=== PATIENT | female | born 1940 | race Caucasian/White ===

== ENCOUNTER → 2019-01-26 | Outpatient (CLI) | payer MEDICARE, BC ==
--- NOTE | 2019-01-26 14:34 | XR ---
EXAM TYPE: LUMBAR SPINE X RAY SERIES COMPARISON: NONE HISTORY: Pain TECHNIQUE: 4 views are submitted. FINDINGS: Scoliosis with multilevel severe degenerative disc disease. Findings suggest previous surgery. Grade 1 anterolisthesis L3 on L4 and L4 on L5. Severe degenerative disc disease at all levels. Diffuse oste openia. Surgical clips right upper quadrant. IMPRESSION: 1. Postsurgical changes with severe multilevel degenerative disc disease and multilevel spondylolisth esis.
--- NOTE | 2019-01-26 14:36 | XR ---
EXAMINATION TYPE: XR pelvis AP view DATE OF EXAM: 01/26/2019 COMPARISON: NONE HISTORY: Pain A postsurgical change lower lumbar spine with chronic appearing deformities of the iliac crests likel y postsurgical. Arthropathy of the hips with diffuse osteopenia. Calcifications in the pelvis are lik maryam vascular. There is a deformity of the right superior pubic ramus.. Visualized bowel gas pattern is nonspecific. IMPRESSION: 1. Slight deformity of the right superior pubic ramus may be positional. Correlate with point tendern ess. If the patient is point tender would recommend CT scan..
== END | disposition home or self-care (01) ==
LOC: RADXRMAIN 13:54
PROVIDERS: ATTEND Internal Medicine
DX: M51.36 Other intervertebral disc degeneration, lumbar region (principal); M43.16 Spondylolisthesis, lumbar region
CPT/HCPCS: 72110; 72170

== ENCOUNTER → 2019-02-19 | Outpatient (CLI) | payer MEDICARE, BC ==
--- NOTE | 2019-02-19 15:43 | MR ---
EXAMINATION TYPE: MR lumbar spine wo/w con DATE OF EXAM: 02/19/2019 COMPARISON: 2009 and 2003. HISTORY: Low Back Pain TECHNIQUE: Multiplanar, multisequence images of the lumbar spine were acquired utilizing 7.5 mL intravenous Gada vist gadolinium contrast. There is 1 cm anterior subluxation of elbow 3 in relation to L4 and also L4 in relation L5. There is narrowing of disc spaces throughout the lumbar spine. There is more severe narrowing from L1 to L4. T here is some sclerosis of the endplates from L1 to L4. There is no compression fracture. There is spi nal stenosis at L2-3 L3-4 due to extensive facet arthropathy. There is lateral recess stenosis especi ally at L2-3 due to large osteophyte formation on the right side. There is no lumbar paraspinal mass. Contrast images show no pathologic enhancement. There is moderately severe L3-4 bony spinal stenosis . IMPRESSION: Degenerative spondylolisthesis as above at 2 levels. Severe L2-3 spinal stenosis. Moderate lateral re cess stenosis at L3-4 due to extensive facet arthropathy. Advanced multilevel spondylotic changes. Mu ltilevel posterior surgery. There is progression of disease compared to old MR scan of 02/08/2004. Ther e is progression of the spinal stenosis and lateral recess stenosis compared to old MR scan of 12/07/19 10. There is increased subluxation deformity at L3-4 compared to 2009.
== END | disposition home or self-care (01) ==
LOC: RADMRIMAIN 09:08
PROVIDERS: ATTEND Internal Medicine
DX: M48.061 Spinal stenosis, lumbar region without neurogenic claudication (principal); M43.16 Spondylolisthesis, lumbar region; M47.816 Spondylosis without myelopathy or radiculopathy, lumbar region; M46.96 Unspecified inflammatory spondylopathy, lumbar region
CPT/HCPCS: 72158; A9585

== ENCOUNTER → 2019-04-06 | Outpatient (CLI) | payer MEDICARE, BC ==
[2019-04-06 11:34] VITALS: BP 101/68; PULSE 76; RESP 16
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
== END | disposition home or self-care (01) ==
LOC: PNWHC3 11:12
PROVIDERS: ATTEND Student in an Organized Health Care Education/Training Program
DX: M96.1 Postlaminectomy syndrome, not elsewhere classified (principal); M48.061 Spinal stenosis, lumbar region without neurogenic claudication; M47.816 Spondylosis without myelopathy or radiculopathy, lumbar region; F32.9 Major depressive disorder, single episode, unspecified; F41.9 Anxiety disorder, unspecified; Z87.891 Personal history of nicotine dependence; Z98.1 Arthrodesis status; Z79.891 Long term (current) use of opiate analgesic; Z79.899 Other long term (current) drug therapy
CPT/HCPCS: 99211

== ENCOUNTER 2019-04-13 07:05 | Day surgery (SDC) | payer MEDICARE, BC ==
[2019-04-12 09:16] VITALS: BMI 27.9
[2019-04-13 07:32] VITALS: TEMP 97.8
[2019-04-13] MEDS ORDERED: LIDOCAINE 1% 20 ML VIAL (10MG/ML) FOR IV START INTRADERMA ONE (07:41)
[2019-04-13] MEDS: LACTATED RINGERS 1,000 ML IV SCH ×2 (07:42→08:31)
--- NOTE | 2019-04-13 08:49 | P.PCN ---
Date of Procedure: 04/13/19 Procedure(s) Performed: PREOP DIAGNOSIS: 1- Lumbar postlaminectomy syndrome. POSTOP DIAGNOSIS:1- Lumbar postlaminectomy syndrome. PROCEDURE: 1-Caudal epidural steroid injection with epidurolysis and epidurogram under fluoroscopic guidance. (Fluoroscopy images available in the radiology Department ) 2-caudal epidurogram. ANESTHESIA: Local with 1% lidocaine 3 ml ,and moderate sedation, with Versed 2 mg and fentanyl 100 g. EBL: Minimal. PROCEDURE INDICATION: The patient with post-laminectomy syndrome with low back pain and radiculopathy radiating down in both legs, here for a caudal epidural steroid injection with epidurolysis. PROCEDURE DESCRIPTION: The patient was seen and identified in the preoperative area. Risks, benefits, complications, and alternatives were discussed with the patient. The patient agreed to proceed with the procedure and signed the consent. IV was started, and vital signs were stable. Patient was taken to the OR and time out was completed. The patient was placed in the prone position on procedure table and a pillow was placed under the abdomen to reduce lumbar lordosis. The lumbosacral area was prepped and draped in the usual sterile fashion. Vital signs were closely monitored during the procedure. lateral view and the anterior-posterior plates of the sacrum were identified with infiltration of the area overlying the sacral hiatus with 1% lidocaine .A 17 gauge RK epidural needle was used to advance through the sacral hiatus into the caudal epidural space. Omnipaque 180 dye. 2cc was injected and the position of the needle was verified to be in the midline. A Racz catheter was introduced into the epidural space and was advanced towards the L5-S1 interspace under direct fluoroscopic guidance. Multiple passes were made with the catheter for lysis of epidural adhesions. Depo-Medrol 40 mg with 3ml of preservative free Lidocaine 1% and 5 ml of preservative free normal saline was injected slowly. Additional spread was seen to L4 under fluoroscopy. The needle and the catheter were withdrawn intact. EPIDUROGRAM: Omnipaque 180 mg dye 2 ml was injected with spread of the dye into the caudal epidural space and with spread cutoff at L5 prior to epidurolysis. Post epidurolysis dye 2 ml was injected and spread was seen to L3-4.There was further spread of the solution together with the dye above the L3 COMPLICATIONS: None. DISPOSITION / PLANS: The patient was placed in a supine position and transferred to the recovery area in a stable condition for observation and was discharged from the recovery room after meeting discharge criteria. Home discharge instructions given to the patient by the staff. The patient was reexamined prior to discharge. The patient will schedule a follow up in the clinic in 2-4 weeks.
[2019-04-13] MEDS ORDERED: KETOROLAC 30 MG/ML 1 ML VIAL IVP STA (08:52)
[2019-04-13] MEDS ORDERED: IV FLUID CONTINUATION 1,000 ML IV ONE ×2 (08:55)
[2019-04-13 08:58] VITALS: RESP 18
[2019-04-13] MEDS ORDERED: KETOROLAC 30 MG/ML 1 ML VIAL IVP ONE (09:03)
[2019-04-13 09:24] VITALS: BP 132/66; PULSE 62
--- NOTE | 2019-04-13 10:17 | FL ---
EXAMINATION TYPE: FL guided pain mgmt statistic DATE OF EXAM: 04/13/2019 HISTORY: Flouroscopy time 6 seconds of fluoroscopy provided. IMPRESSION: 1. Fluoroscopy time.
== END 2019-04-13 09:56 | disposition home or self-care (01) ==
LOC: ORPAIN 07:05
PROVIDERS: ATTEND Specialist
DX: M96.1 Postlaminectomy syndrome, not elsewhere classified (principal); G96.12 Meningeal adhesions (cerebral) (spinal); M47.26 Other spondylosis with radiculopathy, lumbar region; M48.061 Spinal stenosis, lumbar region without neurogenic claudication; Z88.1 Allergy status to other antibiotic agents; Z88.2 Allergy status to sulfonamides
CPT/HCPCS: 62264; J2250; J1030; J3010; J1885; Q9966; C1894; 99152

== ENCOUNTER 2019-04-27 07:07 | Day surgery (SDC) | payer MEDICARE, BC ==
[2019-04-25 09:16] VITALS: BMI 27.9
[~2019-04-27 07:07] MED LIST: LACTATED RINGERS 1,000 ML IV SCH
[2019-04-27 07:55] VITALS: RESP 16; TEMP 97.3
[2019-04-27] MEDS ORDERED: LIDOCAINE 1% 20 ML VIAL (10MG/ML) FOR IV START INTRADERMA ONE (08:07)
--- NOTE | 2019-04-27 09:16 | FL ---
Fluoroscopy HISTORY: Pain 0.17 minutes fluoroscopy time supplied to the referring clinician. 5 intraoperative C-arm images doc ument the procedure. See dictated report from anesthesia.
[2019-04-27] MEDS ORDERED: IV FLUID CONTINUATION 700 ML IV ONE (09:19)
[2019-04-27 09:21] VITALS: BP 134/63; PULSE 51
--- NOTE | 2019-05-10 14:04 | P.PCN ---
Date of Procedure: 04/27/19 Procedure(s) Performed: Procedure= caudal epidural steroid injection with lysis of epidural adhesions under fluoroscopy guidance. Preoperative diagnosis=1-failed back surgery syndrome lumbar area. 2 lumbar degenerative disc disease 3-lumbar radiculopathy Postoperative diagnosis= same Fluoroscopy was used for the procedure and fluoroscopic images were saved to the patient's chart Anesthesia= IV sedation with Versed and fentanyl , and local infiltration with lidocaine 1% 3 mL for skin and subcutaneous tissue infiltrations. Description of the procedure= procedure risk and benefits discussed with the patient, including but not limited to risk of infection and bleeding and ALLERGIC reaction to the medication and no complete pain relief, paralysis discussed with the patient and the patient agreed with proceeding. The patient was taken to the operating room, placed in prone position, standard monitors applied, then after induction of anesthesia the lumbar and the caudal Area prepped with chlorhexidine , then under fluoroscopy guidance, local infiltration of the skin and subcutaneous tissue at the caudal hiatus area, then a 17-gauge Touhy needle advanced slowly under fluoroscopy and passed through the cauda hiatus and advanced to the epidural space upto the S3 level. Aspiration revealed no heme, no paresthesia, no cerebrospinal fluid, then Isovue 200 2mls was injected under live fluoroscopy that showed good spread in the epidural space, no intrathecal spread, then a 22 gt Racz catheter was advanced slowly through the needle up to the L5 level and I was able to break the scar tissue by advancing and withdrawing the catheter multiple times. Once lysis of adhesion was completed, a mixture of lidocaine 1% 1 mL +5 mL of preservative-free normal saline +80 mg of depomedrol was mixed together , and injected epidurally through the Racz catheter after negative aspiration. Patient tolerated the procedure well without any complication and will follow up with up in the pain clinic in 4 weeks.
== END 2019-04-27 09:41 | disposition home or self-care (01) ==
LOC: ORPAIN 07:07
PROVIDERS: ATTEND Anesthesiology
DX: G89.29 Other chronic pain (principal); M96.1 Postlaminectomy syndrome, not elsewhere classified; M51.16 Intervertebral disc disorders with radiculopathy, lumbar region; M47.816 Spondylosis without myelopathy or radiculopathy, lumbar region; M48.061 Spinal stenosis, lumbar region without neurogenic claudication; F32.9 Major depressive disorder, single episode, unspecified; F41.9 Anxiety disorder, unspecified; Z87.891 Personal history of nicotine dependence; Z79.899 Other long term (current) drug therapy
CPT/HCPCS: 62264; J2250; J1030; J3010; Q9966; 99152

== ENCOUNTER → 2019-06-02 | Outpatient (CLI) | payer MEDICARE, BC ==
[2019-06-02 12:21] VITALS: BP 134/87; PULSE 63; RESP 16
--- NOTE | 2019-06-03 07:44 | P.PAINPG ---
Subjective Progress Note Date: 06/02/19 This is a 79-year-old patient referred to us for chronic primarily low back, some back pain immediately below the ribs, and some radiating pain and numbness down her right leg and now going down her left leg also. She has an extensive history with back pain starting around 1999, she initially had a laminectomy per patient it was at L3-L4, followed by a lumbar fusion at L4-L5. Her pain has been getting worse since then, she has seen several surgeons who had declined operating on her any further. She was evaluated in our clinic in April 2019, she underwent 2 caudal epidural steroid injections with lysis of adhesions on 04/13/2019 and 05/10/2019. She returns today for follow-up. She reports no significant relief from either procedure. Her primary complaint is right lower extremity numbness. She reports that she does not have any significant low back pain or leg pain at rest, however if she walks a certain distance and then stops, her pain shoots up to 10/10 and then she experiences numbness in right lower extremityalong medial thigh, medial leg up to her foot. Patient also denies new-onset weakness, bowel/bladder incontinence, or any other signs or symptoms of cauda equina syndrome. In addition to above, 13-point review of systems is also negative for chest pain, shortness of breath, changes in vision, changes in hearing, new onset weakness, abdominal pain, diarrhea, extreme fatigue, malaise, fever, skin changes, homicidal or suicidal ideation, or bowel or bladder incontinence. She does endorse chronic chills and night sweats. She has had prior suicidal attempt over 10 years ago, however denies any suicidal ideation currently. Physical Exam Vital Signs: Reviewed in EMR GENERAL: Well appearing, in no acute distress, PSYCH: Mood and affect is appropriate. Awake, alert, and oriented SKIN: Skin color, texture, turgor normal, no rashes or lesions HEENT: Normocephalic, atraumatic. EOM intact CV: No pedal edema RESP: Respirations are unlabored, no audible wheezing GI: Abdomen non-distended MUSCULOSKELETAL: Bilateral lower extremity strength is normal and symmetric. No atrophy or tone abnormalities are noted. Lumbar spine: Some pain to palpation over the lumbar spine and paraspinous muscles. No pain with facet loading and back extension/rotation. Extremities: Peripheral joint ROM is full and pain free without obvious instability or laxity in all four extremities. No edema or skin discolorations noted. Gait: Gait is anantalgic NEUR: Bilateral lower extremity coordination and muscle stretch reflexes are physiologic and symmetric. No loss of sensation is noted. Cranial nerves are grossly intact. Results Comments: Lumbar MRI reviewed which shows lumbar spondylosis, severe spinal canal stenosis at L2-L3, changes consistent with lumbar fusion. Assessment and Plan Assessment: Assessment: 1. Failed back surgery 2. Lumbar spondylosis 3. Spinal stenosis most severe at L2-L3 4. Depression, anxiety 5. Chronic benzodiazepine usage Plan: 1. Explanation: I explained to her the causes of her pain and numbness including 1. failed back surgery, and scar tissue from it 2. Lumbar facet arthropathy above the level of her fusion, 3. Severe spinal stenosis L2-L3. We had a lengthy discussion regarding risks and benefits of procedures, I explained that the procedures are unlikely to completely eradicate her right lower extremity numbness, which is her primary complaint. I also discussed alternative options including medication management such as gabapentin, spinal cord stimulator as well as surgery. She currently would like to attempt a procedure and is not interested in medications or surgery at this point. 2. Opioid agreement: None 3. Counseling: Patient was told to stay active, she was provided an exercise handout sheet to focus on low back stretching and strengthening exercises 4. Procedures: Patient had no significant benefit from caudal epidural steroid injection with lysis of adhesions 2. We will schedule right sided transforaminal epidural steroid injection at L2-L3 given her severe spinal stenosis. If no significant benefit from this procedure, patient is unlikely to benefit from further procedures. 5. Consultations: None 6. Investigations: Lumbar MRI reviewed 7. Medications: None currently, in the future patient would likely benefit from neuropathic agent such as gabapentin or Lyrica 8. Disposition: For above-mentioned procedure PQRS Measure Charge Sheet Measure #130: Documentation of Current Meds in Medical Chart: Patient's medications documented in chart Measure #226: Tobacco Use: Screen & Cessation Intervention: Pt not a tobacco user Measure #111: Pneumonia Vaccination: Pneumococcal vaccine administered or previously received Measure #47: Advance Care Plan: Advance care planning discussed & documented, pt chose/unable to give Measure #412: Opioid Treatment Agreement: No documentation of signed opioid treatment agreement Measure #408: Opioid Therapy Follow-up Evaluation: Patient had NO f/u eval minimum every 3 months during opioid therapy Measure #317: Preventitive Care & Scrn High Bld Press & F/U: Normal blood pressure, f/u not required Measure #128: Body Mass Index (BMI) Screening & Follow-up: BMI documented within normal parameters Measure #131: Pain Assessment & Follow-up: Pain positive & plan documented, Follow-up scheduled Measure #431: Unhealthy Alcohol Use Preventative Care & Scrn: Patient not identified as an unhealthy alcohol user PQRS Narrative: Smoking Status Former smoker Hx Alcohol Use (MH) No Home Medications: Ambulatory Orders Acetaminophen/Diphenhydramine [Tylenol PM 500-25mg] 2 tab PO HS PRN 04/05/19 Biotin 5,000 mcg PO DAILY 04/05/19 Melatonin 10 mg PO HS PRN 04/05/19 Multivit-Min/Iron/Folic/Lutein [Centrum Silver Women Tablet] 1 each PO DAILY 04/05/19 Naproxen Sod/Diphenhydramine [Aleve Pm Caplet] 2 each PO HS PRN 04/05/19 Sarthak Med Sinus Rinse 1 dose EA NOSTRIL DIRECTED PRN 04/05/19 Nystatin 100,000 Unit/gm Powd [Mycostatin Powder] 1 applic TOPICAL BID 04/05/19 Stool Softner 1 tab PO DAILY PRN 04/05/19 clonazePAM [KlonoPIN] 1 mg PO TID 04/05/19 Cholecalciferol (Vitamin D3) [Vitamin D3] 1,000 unit PO DAILY 04/25/19 Controlled Substance Measures - Controlled Substance Measures Is patient prescribed a controlled substance at discharge?: No
== END | disposition home or self-care (01) ==
LOC: PNWHC3 11:53
PROVIDERS: ATTEND Anesthesiology
DX: M96.1 Postlaminectomy syndrome, not elsewhere classified (principal); M48.061 Spinal stenosis, lumbar region without neurogenic claudication; M47.816 Spondylosis without myelopathy or radiculopathy, lumbar region; F41.8 Other specified anxiety disorders; Z87.891 Personal history of nicotine dependence; Z79.899 Other long term (current) drug therapy; Z79.1 Long term (current) use of non-steroidal anti-inflammatories (NSAID)
CPT/HCPCS: 99211

== ENCOUNTER 2019-06-23 06:34 | Day surgery (SDC) | payer MEDICARE, BC ==
[2019-06-21 11:01] VITALS: BMI 28.4
[2019-06-23 07:16] VITALS: TEMP 97
[2019-06-23] MEDS ORDERED: LIDOCAINE 1% 20 ML VIAL (10MG/ML) FOR IV START INTRADERMA ONE (07:24)
[2019-06-23] MEDS ORDERED: MIDAZOLAM 2 MG/2 ML VIAL ONE (08:25)
[2019-06-23] MEDS ORDERED: DEXAMETHASONE SOD PHOSPHATE 10 MG/ML 1 ML VIAL ONE (08:25)
[2019-06-23] MEDS ORDERED: IOPAMIDOL M200 10 ML VIAL ONE (08:25)
[2019-06-23] MEDS ORDERED: fentaNYL (PF) 50 MCG/ML 2 ML AMP ONE (08:25)
[2019-06-23] MEDS ORDERED: FLUID CONTINUATION IV ONE (08:44)
--- NOTE | 2019-06-23 08:47 | P.PCN ---
Date of Procedure: 06/23/19 Procedure(s) Performed: PREOPERATIVE DIAGNOSIS: Lumbar radiculopathy POSTOPERATIVE DIAGNOSIS: Lumbar radiculopathy Attending physician: Kylee Herbert M.D. PROCEDURE 1. Transforaminal epidural steroid injection under fluoroscopic guidance L2-3 level, right side 2. Lumbar epidurogram ANESTHESIA: Local with 1% lidocaine 3 ml ; IV sedation with Versed and fentanyl , sedation time 13 minutes PROCEDURE INDICATION: The patient with low back pain and radiculopathy symptoms unresponsive to conservative treatment. Fluoroscopy was used for the procedure and fluoroscopic images were saved to the radiology portion of patient's chart. PROCEDURE DESCRIPTION / TECHNIQUE: The patient was seen and identified in the preoperative area. Risks, benefits, complications, and alternatives were discussed with the patient. The patient agreed to proceed with the procedure and signed the consent. IV was started, and vital signs were stable. Patient was taken to the OR and time out was completed. The patient was placed in the prone position on procedure table and a pillow was placed under the abdomen to reduce lumbar lordosis. The lumbosacral area was prepped and draped in the usual sterile fashion. Vital signs were closely monitored during the procedure. Conscious sedation was used. Using oblique fluoroscopy, the chin of the ``Blake dog and the skin and deeper tissues just below was localized with 1% lidocaine. Subsequently, a 22- gauge 3.5-inch spinal needle was advanced under a tunneled view fluoroscopic guidance just underneath the chin of the ``Blake dog . Under lateral fluoroscopy, the needle was then advanced to the posterior border of the foramen. After negative aspiration of CSF and blood and with no paresthesias, 1 mL of Isovue-200 contrast dye was injected under live fluoroscopy and there was no evidence of intravascular injection. The injectate solution consisting of 10 mg of dexamethasone with 1 mL of 1% lidocaine was then delivered. The needle was withdrawn intact. At the end of the procedure, skin was cleansed, and bandages were applied. COMPLICATIONS: None COMMENTS: DISPOSITION / PLANS: The patient was placed in a supine position and transferred to the recovery area in a stable condition for observation. There was no evidence of lower extremity motor or sensory deficit after the procedure. Patient was discharged from the recovery room after meeting discharge criteria. Home discharge instructions were given to the patient by the staff. The patient will follow up for repeat procedure in 4 weeks.
--- NOTE | 2019-06-23 08:52 | FL ---
EXAMINATION TYPE: FL guided pain mgmt statistic DATE OF EXAM: 06/23/2019 HISTORY: Fluoroscopy time 9 seconds of fluoroscopy provided. IMPRESSION: 1. Fluoroscopy time.
[2019-06-23 08:54] VITALS: RESP 16
[2019-06-23 09:04] VITALS: BP 145/58; PULSE 54
== END 2019-06-23 09:39 | disposition home or self-care (01) ==
LOC: ORPAIN 06:34
PROVIDERS: ATTEND Anesthesiology
DX: G89.29 Other chronic pain (principal); M47.26 Other spondylosis with radiculopathy, lumbar region; M96.1 Postlaminectomy syndrome, not elsewhere classified; M48.061 Spinal stenosis, lumbar region without neurogenic claudication; F32.9 Major depressive disorder, single episode, unspecified; F41.9 Anxiety disorder, unspecified; F19.90 Other psychoactive substance use, unspecified, uncomplicated; Z98.1 Arthrodesis status; Z91.5 Personal history of self-harm; Z79.899 Other long term (current) drug therapy; Z79.1 Long term (current) use of non-steroidal anti-inflammatories (NSAID); Z87.891 Personal history of nicotine dependence
CPT/HCPCS: 64483; J2250; J1100; J3010; Q9966; 99152